=== PATIENT | female | born 1940 | race Caucasian/White ===

== ENCOUNTER 2018-01-10 21:44 | Emergency (ER) | payer MEDICARE, OTHER ==
[2018-01-10 21:48] VITALS: BP 174/90; PULSE 83; RESP 16; TEMP 97.7; O2SAT 96
[2018-01-10] MEDS ORDERED: LIDOCAINE 1%/EPINEPHrine 1:100,000 SOLN 20 ML VIAL INFIL ONE (22:00)
[2018-01-10] MEDS ORDERED: BRIL90TA PO (22:06)
[2018-01-10] MEDS ORDERED: ROSU5 PO (22:06)
[2018-01-10] MEDS ORDERED: POTA20TA5 PO (22:06)
[2018-01-10] MEDS ORDERED: FOLI800T PO (22:06)
[2018-01-10] MEDS ORDERED: ESTR.3 PO (22:06)
[2018-01-10] MEDS ORDERED: GEMF600T PO (22:06)
[2018-01-10] MEDS ORDERED: CLOB0.055 TOPICAL (22:06)
[2018-01-10] MEDS ORDERED: XARE15TA PO (22:06)
[2018-01-10] MEDS ORDERED: FIBE625T PO (22:06)
[2018-01-10] MEDS ORDERED: ATEN100T PO (22:06)
[2018-01-10] MEDS ORDERED: ANT PO (22:06)
[2018-01-10] MEDS ORDERED: NIAC500T5 PO (22:06)
[2018-01-10] MEDS ORDERED: VITA250C3 CHEW (22:06)
[2018-01-10] MEDS ORDERED: LISI10TA3 PO (22:06)
[2018-01-10] MEDS ORDERED: fish oil PO (22:06)
[2018-01-10] MEDS ORDERED: HYDR25TA5 PO (22:06)
--- NOTE | 2018-01-10 22:08 | PD ---
HPI Chief Complaint: Oral / Dental Pain or Problem Time Seen by Provider: 21:56 Travel History International Travel<30 days: No Contact w/Intl Traveler<30days: No Traveled to known affect area: No History of Present Illness HPI 77-year-old female on Brilinta and Plavix presents to the ED for evaluation of bleeding from the tongue. Onset around noon today after the patient states that she bit her tongue. She is unable to explain how this happened. She states that she "thought it would stop bleeding" but came to the emergency room approximately 12 hours later for continued bleeding. She denies headache, dizziness, palpitations, shortness of breath. She has been applying pressure and ice throughout the day with some improvement of symptoms. PFSH Past Medical History Atrial Fibrillation: Yes Diminished Hearing: No Myocardial Infarction: Yes Past Surgical History Cholecystectomy: Yes Hysterectomy: Yes Other Surgery: Yes (R CAROTID ENDARTERECTOMY ) Social History Alcohol Use: Yes (RARE) Tobacco Use: No Substance Use: No Allergies-Medications (Allergen,Severity, Reaction): Coded Allergies: Penicillins (Verified Allergy, Intermediate, 01/10/18) Reported Meds & Prescriptions Reported Meds & Active Scripts Active Reported Clobetasol Topical (Clobetasol Propionate) 0.05% Cream 1 Applic TOPICAL DAILY Folic Acid 0.8 Mg Tab 800 Mcg PO DAILY Niacin 500 Mg Tab 1,000 Mg PO DAILY Crestor (Rosuvastatin Calcium) 5 Mg Tab 5 Mg PO DAILY Lisinopril 10 Mg Tab 10 Mg PO DAILY Fibercon (Calcium Polycarbophil) 625 Mg Tab 625 Mg PO DAILY PRN [fish oil] 360 Mg PO DAILY Vitamin C (Ascorbic Acid) 250 Mg Chew 500 Mg CHEW DAILY [ant] 1 Tab PO DAILY Hydrochlorothiazide 25 Mg Tab 25 Mg PO DAILY Premarin (Estrogens Conjugated) 0.3 Mg Tab 0.3 Mg PO WEEKLY Atenolol 100 Mg Tab 100 Mg PO DAILY Potassium Chloride Microencaps 20 Meq Tab 20 Meq PO DAILY Gemfibrozil 600 Mg Tab 600 Mg PO BIDAC Take 30 minutes prior to breakfast and dinner. Brilinta (Ticagrelor) 90 Mg Tab 90 Mg PO BID Xarelto (Rivaroxaban) 15 Mg Tab 15 Mg PO DAILY Review of Systems Except as stated in HPI: all other systems reviewed are Neg Physical Exam Narrative GENERAL: Well-nourished, well-developed white female no acute distress. SKIN: Focused skin assessment warm/dry. HEAD: Normocephalic. EYES: No scleral icterus. No injection or drainage. NECK: Supple, trachea midline. No JVD or lymphadenopathy. DENTAL: There are 2 areas of pinpoint bleeding on the anterior left lateral tongue. CARDIOVASCULAR: Regular rate and rhythm without murmurs, gallops, or rubs. RESPIRATORY: Breath sounds equal bilaterally. No accessory muscle use. GASTROINTESTINAL: Abdomen soft, non-tender, nondistended. MUSCULOSKELETAL: No cyanosis, or edema. BACK: Nontender without obvious deformity. No CVA tenderness. Data Data Last Documented VS Vital Signs Date Time Temp Pulse Resp B/P (MAP) Pulse Ox O2 Delivery O2 Flow Rate FiO2 01/10/18 21:48 97.7 83 16 174/90 (118) 96 Orders Orders Lidocai-Epi 1%-1:100,000 Inj (Xylocaine- (01/10/18 22:00) Ed Discharge Order (01/10/18 23:00) MDM Medical Decision Making Medical Screen Exam Complete: Yes Emergency Medical Condition: Yes Differential Diagnosis Tongue laceration versus uncontrolled bleeding versus hypercoagulation versus other Narrative Course 77-year-old female on Brilinta and Plavix presents to the ED for evaluation of bleeding from the tongue. Onset around noon today after the patient states that she bit her tongue. She is unable to explain how this happened. She states that she "thought it would stop bleeding" but came to the emergency room approximately 12 hours later for continued bleeding. She denies headache, dizziness, palpitations, shortness of breath. She has been applying pressure and ice throughout the day with some improvement of symptoms. Vitals reviewed. On exam she has 2 pinpoint areas of bleeding on the anterior lateral tongue. Local anesthesia was performed and the cautery device was used to achieve hemostasis. Patient was monitored for approximately 25 minutes with no recurrence of bleeding. She is asking to be discharged. She states that she flies home tomorrow and is concerned about getting enough rest. Patient's instructed to use gentle warm salty water gargles, eat soft foods for the next 24 hours, follow with her primary care. She is agreeable with the plan. She is stable and discharged home. Procedures Procedure Narrative LACERATION LOCATION: Left anterior lateral tongue LENGTH: Pinpoint areas 2 REPAIR: The laceration was infiltrated with 1% lidocaine with epinephrine. A total of 1 cc was instilled. Adequate anesthesia was obtained. 2 areas of pinpoint bleeding were identified. Held pressure on these areas for approximately 3 minutes with no resolution of the bleeding. The electrocautery device was used to obtain hemostasis. Patient tolerated the procedure well. Diagnosis Primary Impression: Laceration of tongue without complication Qualified Codes: S01.512A - Laceration without foreign body of oral cavity, initial encounter Referrals: Dentist Additional Instructions: Rest, hydrate. Gently rinse the mouth a few times per day with warm salty water. Eat soft foods for the next 24-48 hours. Follow-up with the dentist or with the primary care provider. Return to the ED for worsening symptoms or any urgent or emergent medical condition. Disposition: 01 DISCHARGE HOME Condition: Stable Jacqueline Mejia Jan 10, 2018 22:08
[2018-01-12] MEDS ORDERED: FISH120016 PO (10:38)
== END 2018-01-10 23:20 | disposition home or self-care (01) ==
LOC: NEPE 21:44
DX: S01.512A Laceration without foreign body of oral cavity, initial encounter (principal); X58.XXXA Exposure to other specified factors, initial encounter; I48.91 Unspecified atrial fibrillation; I25.2 Old myocardial infarction; Z79.02 Long term (current) use of antithrombotics/antiplatelets
CPT/HCPCS: 41250